=== PATIENT | male | born 2000 ===

== ENCOUNTER 2021-10-14 16:32 | Emergency (ER) | payer SELFPAY ==
[2021-10-14 16:40] VITALS: BP 121/71; PULSE 91; RESP 16; TEMP 36.6; O2SAT 99; BMI 25.8
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
[2021-10-14] MEDS: ibuprofen 600 mg Tablet PO (17:10)
[2021-10-14] MEDS: bacitracin ointment Pkt 1 EACH TOPICAL (17:16)
[2021-10-14] MEDS: cephALEXin 500 mg Capsule PO (17:16)
--- NOTE | 2021-10-16 13:06 | DCPLANNER ---
seafood and service meat manager had message to schedule a follow up appointment for patient with ortho. seafood and service meat manager spoke with patient, he stated that he was going to follow up with ortho where he lives.
== END 2021-10-14 18:14 | disposition home or self-care (01) ==
PROVIDERS: Emergency Provider Nurse Practitioner Family
DX: S82.51XA Displaced fracture of medial malleolus of right tibia, initial encounter for closed fracture (principal); W23.0XXA Caught, crushed, jammed, or pinched between moving objects, initial encounter
CPT/HCPCS: 73610; 73630; 99284; E0114